=== PATIENT | male | born 1950 | race Caucasian/White ===

== ENCOUNTER 2018-05-15 14:01 | Inpatient (IN) | payer MEDICARE, MEDICAID ==
[~2018-05-15] VITALS: Ht 167.6 cm; Wt 123.6 kg
[2018-05-15 14:49] LABS: BASOPHILS # (AUTO) 0.1 X10'3 (0-0.2); BASOPHILS % (AUTO) 0.8 % (0-1); EOSINOPHILS % (AUTO) 0.4 % (0-6); HEMOGLOBIN 14.6 g/dl (14.0-17.9); LYMPHOCYTES # (AUTO) 1.6 X10'3 (1.1-4.8); LYMPHOCYTES % (AUTO) 14.3 % (21-51); MEAN CORPUSCULAR HEMOGLOBIN 32.1 PG (27.0-31.0); MEAN CORPUSCULAR HGB CONC 33.2 % (33.0-36.5); MEAN CORPUSCULAR VOLUME 96.6 FL (78-98); MEAN PLATELET VOLUME 6.3 FL (7.4-10.4); MONOCYTES # (AUTO) 0.8 X10'3 (0-0.9); MONOCYTES % (AUTO) 7.1 % (2-12); NEUTROPHILS # (AUTO) 8.5 X10'3 (1.8-7.7); NEUTROPHILS % (AUTO) 77.4 % (42-75); PLATELET COUNT 199 X10'3 (140-440); RED BLOOD COUNT 4.56 X10'6 (4.70-6.10); RED CELL DISTRIBUTION WIDTH 18.9 % (11.5-14.5)
[2018-05-15 15:00] LABS: ALANINE AMINOTRANSFERASE 14 U/L (12-78); ALBUMIN 2.6 G/DL (3.4-5.0); ALBUMIN/GLOBULIN RATIO 0.7 (1.1-1.5); ALKALINE PHOSPHATASE 89 IU/L (46-116); ANION GAP 15 (8-16); ASPARTATE AMINO TRANSFERASE 21 U/L (10-37); BILIRUBIN,TOTAL 0.8 MG/DL (0.1-1.0); BLOOD UREA NITROGEN 48 MG/DL (7-18); BUN/CREATININE RATIO 4.1 (5.4-32.0); CALCIUM 9.4 MG/DL (8.5-10.1); CHLORIDE 98 MMOL/L (99-107); CREATININE 11.66 MG/DL (0.60-1.10); GLUCOSE 137 MG/DL (70-104); MAGNESIUM 2.1 MG/DL (1.5-2.4); POTASSIUM 3.2 MMOL/L (3.5-5.1); SODIUM 138 MMOL/L (135-145); TOTAL CARBON DIOXIDE 25.1 MMOL/L (24-32); TOTAL PROTEIN 6.6 G/DL (6.4-8.2); eGFR 4 ML/MIN
[2018-05-15 15:02] LABS: PROTHROMBIN TIME 78.2 SECONDS (9.0-12.0)
[2018-05-15 15:07] LABS: INR 8.7 INR
[2018-05-15 15:19] LABS: ANISOCYTOSIS 2+; PLATELET ESTIMATE NORMAL; POLYCHROMASIA FEW
[2018-05-15] MEDS ORDERED: HYDROcodone/acetaminophen 5mg/325mg tablet PO PRN (17:30)
[2018-05-15] MEDS ORDERED: magnesium 4gm in 100ml NS 100 ML IV PRN (17:30)
[2018-05-15] MEDS ORDERED: magnesium Cl slow-release 64mg tablet PO PRN (17:30)
[2018-05-15] MEDS ORDERED: morphine 2 MG/ML inj. syringe IV PRN ×2 (17:30)
[2018-05-15] MEDS ORDERED: FERR210T (17:36)
[2018-05-15] MEDS ORDERED: CALC667T5 PO (17:36)
[2018-05-15] MEDS ORDERED: BISA-78 (18:01)
[2018-05-15] MEDS ORDERED: LOVA10TA PO (18:01)
[2018-05-15] MEDS ORDERED: VIT1TABL50 PO (18:01)
[2018-05-15] MEDS ORDERED: GABA-530 PO (18:01)
[2018-05-15] MEDS ORDERED: RANI150C4 PO (18:01)
[2018-05-15] MEDS ORDERED: COU5T PO (18:01)
[2018-05-15] MEDS ORDERED: CALC0.5C2 PO (18:01)
[2018-05-15] MEDS ORDERED: MIDO5TAB PO (18:01)
[2018-05-15] MEDS ORDERED: LACT10SO PO (18:01)
[2018-05-15] MEDS ORDERED: AMIO200T40 PO (18:01)
[2018-05-15] MEDS ORDERED: SERT50TA10 PO (18:01)
[2018-05-15] MEDS: normal saline 1000ml 1,000 ML IV SCH (18:05)
[2018-05-15 20:00] VITALS: BP 90/56
[2018-05-15] MEDS: HYDROcodone/acetaminophen 10/325mg tab PO PRN (21:50)
[2018-05-15 23:00] VITALS: BP 88/20
[2018-05-16] MEDS: HYDROcodone/acetaminophen 10/325mg tab PO PRN ×3 (02:40→13:31)
[2018-05-16 03:00] VITALS: BP 91/58
[2018-05-16 06:00] VITALS: BP 98/57
[2018-05-16 07:28] LABS: BASOPHILS # (AUTO) 0.1 X10'3 (0-0.2); BASOPHILS % (AUTO) 1.3 % (0-1); EOSINOPHILS # (AUTO) 0.2 X10'3 (0-0.9); EOSINOPHILS % (AUTO) 1.7 % (0-6); HEMATOCRIT 42.6 % (42.0-52.0); LYMPHOCYTES # (AUTO) 1.8 X10'3 (1.1-4.8); LYMPHOCYTES % (AUTO) 17.8 % (21-51); MEAN CORPUSCULAR HEMOGLOBIN 31.9 PG (27.0-31.0); MEAN CORPUSCULAR HGB CONC 32.9 % (33.0-36.5); MEAN CORPUSCULAR VOLUME 97.1 FL (78-98); MEAN PLATELET VOLUME 6.4 FL (7.4-10.4); MONOCYTES # (AUTO) 0.6 X10'3 (0-0.9); MONOCYTES % (AUTO) 5.9 % (2-12); NEUTROPHILS # (AUTO) 7.4 X10'3 (1.8-7.7); NEUTROPHILS % (AUTO) 73.3 % (42-75); PLATELET COUNT 172 X10'3 (140-440); RED BLOOD COUNT 4.39 X10'6 (4.70-6.10); RED CELL DISTRIBUTION WIDTH 18.6 % (11.5-14.5); WHITE BLOOD COUNT 10.2 X10'3 (4.5-11.0)
[2018-05-16] MEDS: calcium acetate 667mg (PhosLO) capsule PO SCH ×3 (07:36→20:45)
[2018-05-16] MEDS: midodrine 5mg tablet PO SCH ×3 (07:36→23:06)
[2018-05-16] MEDS: gabapentin 100mg capsule PO SCH ×3 (07:37→23:07)
[2018-05-16] MEDS: famotidine 20mg tablet PO SCH ×2 (07:37→20:45)
[2018-05-16] MEDS: amiodarone 200mg tablet PO SCH (07:37)
[2018-05-16] MEDS: sertraline 50mg tablet PO SCH (07:37)
[2018-05-16] MEDS: atorvastatin 10mg tablet PO SCH (07:38)
[2018-05-16] MEDS: lactulose 20gm/30ml cup PO SCH (07:39)
[2018-05-16 09:12] LABS: ALBUMIN 2.3 G/DL (3.4-5.0); ANION GAP 15 (8-16); BLOOD UREA NITROGEN 57 MG/DL (7-18); BUN/CREATININE RATIO 4.7 (5.4-32.0); CHLORIDE 100 MMOL/L (99-107); CREATININE 12.16 MG/DL (0.60-1.10); GLUCOSE 106 MG/DL (70-104); MAGNESIUM 2.1 MG/DL (1.5-2.4); POTASSIUM 3.4 MMOL/L (3.5-5.1); SODIUM 139 MMOL/L (135-145); TOTAL CARBON DIOXIDE 24.3 MMOL/L (24-32); eGFR 4 ML/MIN
[2018-05-16 10:21] LABS: PROTHROMBIN TIME 75.7 SECONDS (9.0-12.0)
[2018-05-16 10:24] LABS: ALANINE AMINOTRANSFERASE 13 U/L (12-78); ALBUMIN 2.2 G/DL (3.4-5.0); ALBUMIN/GLOBULIN RATIO 0.6 (1.1-1.5); ALKALINE PHOSPHATASE 82 IU/L (46-116); ASPARTATE AMINO TRANSFERASE 15 U/L (10-37); BILIRUBIN,DIRECT 0.2 MG/DL (0-0.3); BILIRUBIN,TOTAL 0.6 MG/DL (0.1-1.0); INR 8.4 INR
[2018-05-16 11:00] VITALS: BP 91/60
[2018-05-16 15:00] VITALS: BP 144/124
[2018-05-16 19:00] VITALS: BP 92/58
[2018-05-16] MEDS: normal saline 1000ml 1,000 ML IV SCH (19:03)
[2018-05-16] MEDS ORDERED: warfarin 5mg tablet PO SCH (21:00)
[2018-05-16 23:00] VITALS: BP 128/80
[2018-05-17] MEDS: HYDROcodone/acetaminophen 10/325mg tab PO PRN ×3 (02:05→19:28)
[2018-05-17 03:00] VITALS: BP 95/61
[2018-05-17 06:00] VITALS: BP 87/54
[2018-05-17 06:54] LABS: BASOPHILS # (AUTO) 0.1 X10'3 (0-0.2); BASOPHILS % (AUTO) 0.8 % (0-1); EOSINOPHILS # (AUTO) 0.2 X10'3 (0-0.9); EOSINOPHILS % (AUTO) 2.6 % (0-6); HEMATOCRIT 44.3 % (42.0-52.0); HEMOGLOBIN 14.7 g/dl (14.0-17.9); LYMPHOCYTES # (AUTO) 1.6 X10'3 (1.1-4.8); LYMPHOCYTES % (AUTO) 19.5 % (21-51); MEAN CORPUSCULAR HEMOGLOBIN 32.5 PG (27.0-31.0); MEAN CORPUSCULAR HGB CONC 33.2 % (33.0-36.5); MEAN CORPUSCULAR VOLUME 97.9 FL (78-98); MEAN PLATELET VOLUME 6.3 FL (7.4-10.4); MONOCYTES # (AUTO) 0.4 X10'3 (0-0.9); MONOCYTES % (AUTO) 5.5 % (2-12); NEUTROPHILS # (AUTO) 5.8 X10'3 (1.8-7.7); NEUTROPHILS % (AUTO) 71.6 % (42-75); PLATELET COUNT 158 X10'3 (140-440); RED BLOOD COUNT 4.52 X10'6 (4.70-6.10); RED CELL DISTRIBUTION WIDTH 19.3 % (11.5-14.5); WHITE BLOOD COUNT 8.1 X10'3 (4.5-11.0)
[2018-05-17 07:07] LABS: ALBUMIN 2.2 G/DL (3.4-5.0); ANION GAP 11 (8-16); BLOOD UREA NITROGEN 54 MG/DL (7-18); BUN/CREATININE RATIO 4.5 (5.4-32.0); CALCIUM 9.5 MG/DL (8.5-10.1); CHLORIDE 101 MMOL/L (99-107); CREATININE 11.97 MG/DL (0.60-1.10); GLUCOSE 94 MG/DL (70-104); MAGNESIUM 2.2 MG/DL (1.5-2.4); POTASSIUM 3.4 MMOL/L (3.5-5.1); PROTHROMBIN TIME 57.5 SECONDS (9.0-12.0); SODIUM 139 MMOL/L (135-145); TOTAL CARBON DIOXIDE 26.8 MMOL/L (24-32); eGFR 4 ML/MIN
[2018-05-17 07:09] LABS: INR 6.3 INR
[2018-05-17] MEDS: midodrine 5mg tablet PO SCH ×2 (07:27→16:19)
[2018-05-17] MEDS: atorvastatin 10mg tablet PO SCH (07:27)
[2018-05-17] MEDS: sertraline 50mg tablet PO SCH (07:27)
[2018-05-17] MEDS: gabapentin 100mg capsule PO SCH ×2 (07:27→16:18)
[2018-05-17] MEDS: amiodarone 200mg tablet PO SCH (07:27)
[2018-05-17] MEDS: famotidine 20mg tablet PO SCH ×2 (07:27→19:27)
[2018-05-17] MEDS: lactulose 20gm/30ml cup PO SCH (07:27)
[2018-05-17] MEDS: calcium acetate 667mg (PhosLO) capsule PO SCH ×3 (07:30→17:46)
[2018-05-17 11:00] VITALS: BP 90/55
[2018-05-17] MEDS: normal saline 1000ml 1,000 ML IV SCH (11:49)
[2018-05-17 15:00] VITALS: BP 94/58
[2018-05-17 19:00] VITALS: BP 78/40
[2018-05-17 23:00] VITALS: BP 110/60
[2018-05-18] MEDS: gabapentin 100mg capsule PO SCH ×4 (00:20→23:54)
[2018-05-18] MEDS: midodrine 5mg tablet PO SCH ×4 (00:20→23:54)
[2018-05-18 03:00] VITALS: BP 103/50
[2018-05-18 06:00] VITALS: BP 132/77
[2018-05-18 06:34] LABS: BASOPHILS % (AUTO) 0.4 % (0-1); EOSINOPHILS # (AUTO) 0.3 X10'3 (0-0.9); EOSINOPHILS % (AUTO) 3.4 % (0-6); HEMATOCRIT 43.1 % (42.0-52.0); HEMOGLOBIN 14.2 g/dl (14.0-17.9); LYMPHOCYTES # (AUTO) 2.1 X10'3 (1.1-4.8); LYMPHOCYTES % (AUTO) 27.6 % (21-51); MEAN CORPUSCULAR HEMOGLOBIN 32.4 PG (27.0-31.0); MEAN CORPUSCULAR VOLUME 98.3 FL (78-98); MEAN PLATELET VOLUME 6.2 FL (7.4-10.4); MONOCYTES # (AUTO) 0.6 X10'3 (0-0.9); NEUTROPHILS # (AUTO) 4.6 X10'3 (1.8-7.7); NEUTROPHILS % (AUTO) 60.6 % (42-75); PLATELET COUNT 138 X10'3 (140-440); RED BLOOD COUNT 4.39 X10'6 (4.70-6.10); RED CELL DISTRIBUTION WIDTH 19.3 % (11.5-14.5); WHITE BLOOD COUNT 7.6 X10'3 (4.5-11.0)
[2018-05-18 06:54] LABS: INR 3.8 INR; PROTHROMBIN TIME 35.5 SECONDS (9.0-12.0)
[2018-05-18 07:14] LABS: ANION GAP 15 (8-16); BLOOD UREA NITROGEN 53 MG/DL (7-18); BUN/CREATININE RATIO 4.6 (5.4-32.0); CALCIUM 9.5 MG/DL (8.5-10.1); CHLORIDE 102 MMOL/L (99-107); CREATININE 11.43 MG/DL (0.60-1.10); GLUCOSE 121 MG/DL (70-104); MAGNESIUM 2.2 MG/DL (1.5-2.4); POTASSIUM 3.2 MMOL/L (3.5-5.1); SODIUM 138 MMOL/L (135-145); TOTAL CARBON DIOXIDE 20.6 MMOL/L (24-32); eGFR 4 ML/MIN
[2018-05-18] MEDS: lactulose 20gm/30ml cup PO SCH (07:54)
[2018-05-18] MEDS: calcium acetate 667mg (PhosLO) capsule PO SCH ×3 (07:54→19:47)
[2018-05-18] MEDS: famotidine 20mg tablet PO SCH ×2 (07:54→19:47)
[2018-05-18] MEDS: atorvastatin 10mg tablet PO SCH (07:54)
[2018-05-18] MEDS: sertraline 50mg tablet PO SCH (07:54)
[2018-05-18] MEDS: amiodarone 200mg tablet PO SCH (07:54)
[2018-05-18] MEDS: HYDROcodone/acetaminophen 10/325mg tab PO PRN ×3 (07:55→16:33)
[2018-05-18 11:00] VITALS: BP 83/48
[2018-05-18] MEDS ORDERED: CALC0.5C2 PO (15:34)
[2018-05-18] MEDS ORDERED: CINA30TA PO (15:34)
[2018-05-18 18:00] VITALS: BP 91/56
[2018-05-18 19:15] LABS: ABG BASE EXCESS -4.4 mmol/L (-2.0-3.0); ABG HCO3 22.3 mmol/L (22.0-26.0); ABG OXYGEN SATURATION 94.9 % (95-98); ABG PCO2 (T) 45.8 mmHg (35.0-48.0); ABG PH (T) 7.303 (7.350-7.450); ALLEN'S TEST Positive; FCOHb 0.7 % (0.5-1.5); FLOW 5 L/min; FMetHb 0.2 % (0.3-1.12); PATIENT TEMPERATURE 36.3; TOTAL HEMOGLOBIN 13.8 G/dl (14.0-18.0)
[2018-05-18] MEDS ORDERED: albumin (human) 25% 100ml IV 100 ML IV ONE (19:50)
[2018-05-18 22:00] VITALS: BP 105/50
[2018-05-18 22:09] LABS: PHOSPHORUS 5.9 MG/DL (2.3-4.5); TROPONIN I < 0.04 NG/ML (0.0-0.05)
[2018-05-19] VITALS (26 sets, daily range): BP systolic 69–144; BP diastolic 33–106
[2018-05-19 06:43] LABS: BASOPHILS % (AUTO) 0.1 % (0-1); EOSINOPHILS # (AUTO) 0.2 X10'3 (0-0.9); EOSINOPHILS % (AUTO) 2.2 % (0-6); HEMATOCRIT 40.4 % (42.0-52.0); HEMOGLOBIN 13.3 g/dl (14.0-17.9); LYMPHOCYTES # (AUTO) 0.8 X10'3 (1.1-4.8); LYMPHOCYTES % (AUTO) 10.9 % (21-51); MEAN CORPUSCULAR HEMOGLOBIN 32.1 PG (27.0-31.0); MEAN CORPUSCULAR VOLUME 97.3 FL (78-98); MEAN PLATELET VOLUME 6.3 FL (7.4-10.4); MONOCYTES # (AUTO) 0.3 X10'3 (0-0.9); MONOCYTES % (AUTO) 4.2 % (2-12); NEUTROPHILS % (AUTO) 82.6 % (42-75); PLATELET COUNT 169 X10'3 (140-440); RED BLOOD COUNT 4.15 X10'6 (4.70-6.10); RED CELL DISTRIBUTION WIDTH 18.9 % (11.5-14.5); WHITE BLOOD COUNT 7.3 X10'3 (4.5-11.0)
[2018-05-19 06:46] LABS: ALBUMIN 2.3 G/DL (3.4-5.0); ANION GAP 14 (8-16); BLOOD UREA NITROGEN 52 MG/DL (7-18); BUN/CREATININE RATIO 4.8 (5.4-32.0); CALCIUM 9.3 MG/DL (8.5-10.1); CHLORIDE 98 MMOL/L (99-107); CREATININE 10.84 MG/DL (0.60-1.10); GLUCOSE 131 MG/DL (70-104); MAGNESIUM 1.9 MG/DL (1.5-2.4); POTASSIUM 3.3 MMOL/L (3.5-5.1); SODIUM 136 MMOL/L (135-145); TOTAL CARBON DIOXIDE 24.5 MMOL/L (24-32); eGFR 5 ML/MIN
[2018-05-19 07:24] LABS: INR 3.3 INR; PROTHROMBIN TIME 31.3 SECONDS (9.0-12.0)
[2018-05-19] MEDS ORDERED: levoFLOXACIN-Levaquin 250mg/D5 50 ML IV ONE (07:25)
[2018-05-19 07:50] LABS: ABG BASE EXCESS -3.8 mmol/L (-2.0-3.0); ABG HCO3 20.7 mmol/L (22.0-26.0); ABG OXYGEN SATURATION 98.4 % (95-98); ABG PCO2 (T) 36.2 mmHg (35.0-48.0); ABG PH (T) 7.376 (7.350-7.450); ABG PO2 (T) 125.4 mmHg (83-108); ALLEN'S TEST Positive; FCOHb 0.5 % (0.5-1.5); FMetHb 0.2 % (0.3-1.12); FO2Hb 97.7 % (94-100); PEEP 5 cm H2O; RESPIRATORY RATE (OBSERVED) 16 b/min; TOTAL HEMOGLOBIN 13.2 G/dl (14.0-18.0)
[2018-05-19] MEDS: sertraline 50mg tablet PO SCH (08:00)
[2018-05-19] MEDS: atorvastatin 10mg tablet PO SCH (08:00)
[2018-05-19] MEDS: calcium acetate 667mg (PhosLO) capsule PO SCH ×3 (08:00→18:00)
[2018-05-19] MEDS: amiodarone 200mg tablet PO SCH ×2 (08:00→12:09)
[2018-05-19] MEDS: midodrine 5mg tablet PO SCH ×3 (08:00→17:14)
[2018-05-19] MEDS: lactulose 20gm/30ml cup PO SCH (08:00)
[2018-05-19] MEDS: gabapentin 100mg capsule PO SCH ×2 (08:00→17:16)
[2018-05-19] MEDS ORDERED: normal saline 250ml IV soln 250 ML IV ONE (08:30)
[2018-05-19] MEDS ORDERED: OLANZapine 5mg rapidly disint. tablet PO ONE (11:40)
[2018-05-19] MEDS ORDERED: NORepinephrine 8mg/ 250ml NS 250 ML IV ONE (16:27)
[2018-05-19] MEDS ORDERED: DOPamine 400mg/D5W 250ml 250 ML IV SCH (16:35)
[2018-05-19] MEDS: DOPamine 400mg/D5W 250ml 250 ML IV SCH (17:43)
[2018-05-19] MEDS ORDERED: OLANZapine **IM** 10 mg inj. IM ONE (20:10)
[2018-05-20] VITALS (22 sets, daily range): BP systolic 72–160; BP diastolic 34–104
[2018-05-20] MEDS: DOPamine 400mg/D5W 250ml 250 ML IV SCH ×4 (04:53→23:39)
[2018-05-20] MEDS ORDERED: albumin (Human) 5% 250ml 250 ML IV ONE ×2 (06:40→06:41)
[2018-05-20 06:46] LABS: ABG BASE EXCESS -0.5 mmol/L (-2.0-3.0); ABG HCO3 25.6 mmol/L (22.0-26.0); ABG OXYGEN SATURATION 92.2 % (95-98); ABG PCO2 (T) 47.3 mmHg (35.0-48.0); ABG PH (T) 7.351 (7.350-7.450); ABG PO2 (T) 65.8 mmHg (83-108); FLOW 5 L/min; FMetHb 0.2 % (0.3-1.12); FO2Hb 91.1 % (94-100); TOTAL HEMOGLOBIN 14.7 G/dl (14.0-18.0)
[2018-05-20 06:53] LABS: INR 3.4 INR; PROTHROMBIN TIME 32.6 SECONDS (9.0-12.0)
[2018-05-20 06:54] LABS: BASOPHILS % (AUTO) 0.4 % (0-1); EOSINOPHILS # (AUTO) 0.2 X10'3 (0-0.9); EOSINOPHILS % (AUTO) 2.7 % (0-6); HEMATOCRIT 40.9 % (42.0-52.0); HEMOGLOBIN 13.5 g/dl (14.0-17.9); LYMPHOCYTES # (AUTO) 1.5 X10'3 (1.1-4.8); LYMPHOCYTES % (AUTO) 17.4 % (21-51); MEAN CORPUSCULAR HEMOGLOBIN 31.8 PG (27.0-31.0); MEAN CORPUSCULAR HGB CONC 32.9 % (33.0-36.5); MEAN CORPUSCULAR VOLUME 96.8 FL (78-98); MEAN PLATELET VOLUME 6.1 FL (7.4-10.4); MONOCYTES # (AUTO) 0.5 X10'3 (0-0.9); MONOCYTES % (AUTO) 5.2 % (2-12); NEUTROPHILS # (AUTO) 6.5 X10'3 (1.8-7.7); NEUTROPHILS % (AUTO) 74.3 % (42-75); PLATELET COUNT 176 X10'3 (140-440); RED BLOOD COUNT 4.23 X10'6 (4.70-6.10); RED CELL DISTRIBUTION WIDTH 18.9 % (11.5-14.5); WHITE BLOOD COUNT 8.7 X10'3 (4.5-11.0)
[2018-05-20 06:59] LABS: ANION GAP 14 (8-16); BLOOD UREA NITROGEN 53 MG/DL (7-18); CALCIUM 9.3 MG/DL (8.5-10.1); CHLORIDE 100 MMOL/L (99-107); CREATININE 10.54 MG/DL (0.60-1.10); GLUCOSE 182 MG/DL (70-104); SODIUM 139 MMOL/L (135-145); TOTAL CARBON DIOXIDE 24.9 MMOL/L (24-32); eGFR 5 ML/MIN
[2018-05-20 07:20] LABS: POTASSIUM 2.9 MMOL/L (3.5-5.1)
[2018-05-20] MEDS: sertraline 50mg tablet PO SCH (08:00)
[2018-05-20] MEDS: gabapentin 100mg capsule PO SCH ×3 (08:00→16:00)
[2018-05-20] MEDS ORDERED: potassium Cl oral solution 20 MEQ/15 ML PO ONE (08:40)
[2018-05-20] MEDS: calcium acetate 667mg (PhosLO) capsule PO SCH ×3 (08:54→23:20)
[2018-05-20] MEDS: lactulose 20gm/30ml cup PO SCH (08:54)
[2018-05-20] MEDS: atorvastatin 10mg tablet PO SCH (08:54)
[2018-05-20] MEDS: amiodarone 200mg tablet PO SCH (08:54)
[2018-05-20] MEDS: midodrine 5mg tablet PO SCH ×3 (09:33→16:00)
[2018-05-20] MEDS ORDERED: DOPamine 400mg/D5W 250ml 250 ML IV SCH (16:35)
[2018-05-21] VITALS (25 sets, daily range): BP systolic 44–141; BP diastolic 35–92
[2018-05-21] MEDS ORDERED: dextrose ORAL solution 15 GM/59 ML bottle PO PRN ×2 (02:35)
[2018-05-21] MEDS ORDERED: MESSAGE TO PHARMACY PO ONE (02:35)
[2018-05-21] MEDS ORDERED: glucagon, human recombinant 1mg kit SUBCUT PRN (02:35)
[2018-05-21] MEDS ORDERED: dextrose 50%-water 50ml dispensing syringe IV PRN ×2 (02:35)
[2018-05-21 03:49] LABS: INR 3.5 INR; PROTHROMBIN TIME 33.5 SECONDS (9.0-12.0)
[2018-05-21 03:56] LABS: ALBUMIN 2.1 G/DL (3.4-5.0); ANION GAP 14 (8-16); BLOOD UREA NITROGEN 53 MG/DL (7-18); BUN/CREATININE RATIO 5.2 (5.4-32.0); CALCIUM 9.5 MG/DL (8.5-10.1); CHLORIDE 97 MMOL/L (99-107); CREATININE 10.15 MG/DL (0.60-1.10); GLUCOSE 219 MG/DL (70-104); MAGNESIUM 1.9 MG/DL (1.5-2.4); POTASSIUM 3.1 MMOL/L (3.5-5.1); SODIUM 135 MMOL/L (135-145); TOTAL CARBON DIOXIDE 24.4 MMOL/L (24-32); eGFR 5 ML/MIN
[2018-05-21 04:12] LABS: BASOPHILS % (AUTO) 0.2 % (0-1); EOSINOPHILS # (AUTO) 0.2 X10'3 (0-0.9); EOSINOPHILS % (AUTO) 2.2 % (0-6); HEMATOCRIT 45.6 % (42.0-52.0); HEMOGLOBIN 14.8 g/dl (14.0-17.9); LYMPHOCYTES # (AUTO) 1.4 X10'3 (1.1-4.8); LYMPHOCYTES % (AUTO) 14.4 % (21-51); MEAN CORPUSCULAR HEMOGLOBIN 31.5 PG (27.0-31.0); MEAN CORPUSCULAR HGB CONC 32.4 % (33.0-36.5); MEAN CORPUSCULAR VOLUME 97.2 FL (78-98); MEAN PLATELET VOLUME 6.1 FL (7.4-10.4); MONOCYTES # (AUTO) 0.5 X10'3 (0-0.9); MONOCYTES % (AUTO) 5.3 % (2-12); NEUTROPHILS # (AUTO) 7.5 X10'3 (1.8-7.7); NEUTROPHILS % (AUTO) 77.9 % (42-75); PLATELET COUNT 179 X10'3 (140-440); RED BLOOD COUNT 4.69 X10'6 (4.70-6.10); RED CELL DISTRIBUTION WIDTH 19.2 % (11.5-14.5); WHITE BLOOD COUNT 9.6 X10'3 (4.5-11.0)
[2018-05-21] MEDS: DOPamine 400mg/D5W 250ml 250 ML IV SCH ×3 (04:28→20:27)
[2018-05-21] MEDS: insulin Lispro (HumaLOG) vial - multi-dose SQ SCH ×4 (04:32→22:21)
[2018-05-21] MEDS: midodrine 5mg tablet PO SCH ×4 (08:21→23:55)
[2018-05-21] MEDS: atorvastatin 10mg tablet PO SCH (08:21)
[2018-05-21] MEDS: calcium acetate 667mg (PhosLO) capsule PO SCH ×4 (08:21→18:25)
[2018-05-21] MEDS: gabapentin 100mg capsule PO SCH ×4 (08:21→23:55)
[2018-05-21] MEDS: sertraline 50mg tablet PO SCH (08:21)
[2018-05-21] MEDS: amiodarone 200mg tablet PO SCH (08:21)
[2018-05-21] MEDS: lactulose 20gm/30ml cup PO SCH (08:30)
[2018-05-21] MEDS ORDERED: potassium Cl 20 mEq SR tablet PO STA (10:30)
[2018-05-21] MEDS: insulin glargine (Lantus) pen - multi-dose SQ SCH (22:22)
[2018-05-22] VITALS (24 sets, daily range): BP systolic 78–129; BP diastolic 41–112
[2018-05-22] MEDS: gabapentin 100mg capsule PO SCH ×3 (00:06→23:40)
[2018-05-22] MEDS: midodrine 5mg tablet PO SCH ×3 (00:07→23:41)
[2018-05-22] MEDS: DOPamine 400mg/D5W 250ml 250 ML IV SCH ×4 (02:08→23:39)
[2018-05-22 04:18] LABS: MAGNESIUM 1.8 MG/DL (1.5-2.4)
[2018-05-22 04:23] LABS: INR 3.3 INR
[2018-05-22 04:26] LABS: HEMATOCRIT 41.5 % (42.0-52.0); HEMOGLOBIN 14.1 g/dl (14.0-17.9); MEAN CORPUSCULAR HEMOGLOBIN 32.8 PG (27.0-31.0); MEAN CORPUSCULAR HGB CONC 33.9 % (33.0-36.5); MEAN CORPUSCULAR VOLUME 96.5 FL (78-98); PLATELET COUNT 166 X10'3 (140-440); RED CELL DISTRIBUTION WIDTH 17.8 % (11.5-14.5); WHITE BLOOD COUNT 7.7 X10'3 (4.5-11.0)
[2018-05-22 04:27] LABS: BASOPHILS % (AUTO) 0.4 % (0-1); EOSINOPHILS # (AUTO) 0.2 X10'3 (0-0.9); EOSINOPHILS % (AUTO) 2.6 % (0-6); LYMPHOCYTES # (AUTO) 1.3 X10'3 (1.1-4.8); LYMPHOCYTES % (AUTO) 16.3 % (21-51); MEAN PLATELET VOLUME 6.8 FL (7.4-10.4); MONOCYTES # (AUTO) 0.6 X10'3 (0-0.9); MONOCYTES % (AUTO) 7.6 % (2-12); NEUTROPHILS # (AUTO) 5.6 X10'3 (1.8-7.7); NEUTROPHILS % (AUTO) 73.1 % (42-75)
[2018-05-22 06:57] LABS: ALBUMIN 1.9 G/DL (3.4-5.0); ANION GAP 16 (8-16); BLOOD UREA NITROGEN 58 MG/DL (7-18); CALCIUM 9.6 MG/DL (8.5-10.1); CHLORIDE 93 MMOL/L (99-107); CREATININE 9.74 MG/DL (0.60-1.10); GLUCOSE 179 MG/DL (70-104); POTASSIUM 3.4 MMOL/L (3.5-5.1); SODIUM 132 MMOL/L (135-145); TOTAL CARBON DIOXIDE 23.4 MMOL/L (24-32); eGFR 5 ML/MIN
[2018-05-22] MEDS: lactulose 20gm/30ml cup PO SCH (08:37)
[2018-05-22] MEDS: amiodarone 200mg tablet PO SCH (08:37)
[2018-05-22] MEDS: sertraline 50mg tablet PO SCH (08:38)
[2018-05-22] MEDS: atorvastatin 10mg tablet PO SCH (08:38)
[2018-05-22] MEDS: calcium acetate 667mg (PhosLO) capsule PO SCH ×3 (08:38→18:55)
[2018-05-22] MEDS ORDERED: gabapentin 100mg capsule PO ONE (08:50)
[2018-05-22] MEDS ORDERED: midodrine 5mg tablet PO ONE (08:50)
[2018-05-22] MEDS: insulin Lispro (HumaLOG) vial - multi-dose SQ SCH ×2 (08:58→14:16)
[2018-05-22 11:01] LABS: PHOSPHORUS 4.3 MG/DL (2.3-4.5)
[2018-05-22 12:19] LABS: LYMPHOCYTES,BODY FLUID 27 %; MONOCYTES,BODY FLUID 55 %; NEUTROPHILS,BODY FLUID 18 %
[2018-05-22 12:21] LABS: BF MESOTHELIAL CELLS FEW; BF RBC COUNT 0 /CU MM; BF WBC COUNT 8 /CU MM (0-1000); BFAPPEAR HAZY; BFCOLOR COLORLESS; BFVOLUME 18 ML
[2018-05-22] MEDS: ondansetron/PF 4mg/2ml inj IV PRN (15:46)
[2018-05-22 16:40] LABS: OXYGEN SATURATION (MIXED VEN) 77.5 % (60-80); PO2 MIXED VENOUS (TEMP COR) 41.6 mmHg (35-46)
[2018-05-22] MEDS: insulin glargine (Lantus) pen - multi-dose SQ SCH (21:30)
[2018-05-23] VITALS (21 sets, daily range): BP systolic 74–140; BP diastolic 35–93
[2018-05-23 04:16] LABS: BASOPHILS % (AUTO) 0.4 % (0-1); EOSINOPHILS # (AUTO) 0.3 X10'3 (0-0.9); HEMOGLOBIN 12.8 g/dl (14.0-17.9); LYMPHOCYTES # (AUTO) 1.5 X10'3 (1.1-4.8); LYMPHOCYTES % (AUTO) 19.7 % (21-51); MEAN CORPUSCULAR HEMOGLOBIN 32.3 PG (27.0-31.0); MEAN CORPUSCULAR HGB CONC 33.7 % (33.0-36.5); MEAN PLATELET VOLUME 6.2 FL (7.4-10.4); MONOCYTES # (AUTO) 0.5 X10'3 (0-0.9); NEUTROPHILS # (AUTO) 5.1 X10'3 (1.8-7.7); NEUTROPHILS % (AUTO) 68.9 % (42-75); PLATELET COUNT 175 X10'3 (140-440); RED BLOOD COUNT 3.96 X10'6 (4.70-6.10); WHITE BLOOD COUNT 7.5 X10'3 (4.5-11.0)
[2018-05-23 04:18] LABS: INR 2.1 INR; PROTHROMBIN TIME 20.8 SECONDS (9.0-12.0)
[2018-05-23 04:19] LABS: ALANINE AMINOTRANSFERASE 16 U/L (12-78); ALBUMIN 1.7 G/DL (3.4-5.0); ALBUMIN/GLOBULIN RATIO 0.4 (1.1-1.5); ALKALINE PHOSPHATASE 145 IU/L (46-116); ANION GAP 12 (8-16); ASPARTATE AMINO TRANSFERASE 22 U/L (10-37); BILIRUBIN,TOTAL 0.5 MG/DL (0.1-1.0); BLOOD UREA NITROGEN 58 MG/DL (7-18); CALCIUM 9.3 MG/DL (8.5-10.1); CHLORIDE 93 MMOL/L (99-107); CREATININE 9.59 MG/DL (0.60-1.10); GLUCOSE 170 MG/DL (70-104); POTASSIUM 3.4 MMOL/L (3.5-5.1); SODIUM 130 MMOL/L (135-145); TOTAL CARBON DIOXIDE 24.8 MMOL/L (24-32); TOTAL PROTEIN 5.6 G/DL (6.4-8.2); eGFR 5 ML/MIN
[2018-05-23] MEDS: sertraline 50mg tablet PO SCH (08:02)
[2018-05-23] MEDS: amiodarone 200mg tablet PO SCH (08:03)
[2018-05-23] MEDS: midodrine 5mg tablet PO SCH ×3 (08:03→23:49)
[2018-05-23] MEDS: gabapentin 100mg capsule PO SCH ×3 (08:04→23:49)
[2018-05-23] MEDS: atorvastatin 10mg tablet PO SCH (08:05)
[2018-05-23] MEDS: calcium acetate 667mg (PhosLO) capsule PO SCH ×3 (08:05→18:01)
[2018-05-23] MEDS: lactulose 20gm/30ml cup PO SCH (08:05)
[2018-05-23] MEDS: DOPamine 400mg/D5W 250ml 250 ML IV SCH (19:45)
[2018-05-23] MEDS: insulin glargine (Lantus) pen - multi-dose SQ SCH (21:00)
[2018-05-23] MEDS: warfarin 3mg tablet PO SCH (22:22)
[2018-05-24] VITALS (22 sets, daily range): BP systolic 80–127; BP diastolic 32–104
[2018-05-24] MEDS: acetaminophen 325mg tablet PO PRN ×3 (02:35→22:24)
[2018-05-24 03:54] LABS: BASOPHILS # (AUTO) 0.1 X10'3 (0-0.2); BASOPHILS % (AUTO) 1.2 % (0-1); EOSINOPHILS # (AUTO) 0.3 X10'3 (0-0.9); EOSINOPHILS % (AUTO) 4.2 % (0-6); HEMATOCRIT 35.9 % (42.0-52.0); HEMOGLOBIN 12.4 g/dl (14.0-17.9); LYMPHOCYTES # (AUTO) 1.6 X10'3 (1.1-4.8); LYMPHOCYTES % (AUTO) 21.4 % (21-51); MEAN CORPUSCULAR HEMOGLOBIN 32.8 PG (27.0-31.0); MEAN CORPUSCULAR HGB CONC 34.4 % (33.0-36.5); MEAN CORPUSCULAR VOLUME 95.1 FL (78-98); MONOCYTES # (AUTO) 0.6 X10'3 (0-0.9); MONOCYTES % (AUTO) 7.8 % (2-12); NEUTROPHILS # (AUTO) 4.9 X10'3 (1.8-7.7); NEUTROPHILS % (AUTO) 65.4 % (42-75); PLATELET COUNT 187 X10'3 (140-440); RED BLOOD COUNT 3.77 X10'6 (4.70-6.10); WHITE BLOOD COUNT 7.4 X10'3 (4.5-11.0)
[2018-05-24 04:02] LABS: ALANINE AMINOTRANSFERASE 17 U/L (12-78); ALBUMIN 1.7 G/DL (3.4-5.0); ALBUMIN/GLOBULIN RATIO 0.5 (1.1-1.5); ALKALINE PHOSPHATASE 137 IU/L (46-116); ANION GAP 10 (8-16); ASPARTATE AMINO TRANSFERASE 20 U/L (10-37); BILIRUBIN,TOTAL 0.5 MG/DL (0.1-1.0); BLOOD UREA NITROGEN 63 MG/DL (7-18); BUN/CREATININE RATIO 6.8 (5.4-32.0); CHLORIDE 92 MMOL/L (99-107); CREATININE 9.32 MG/DL (0.60-1.10); GLUCOSE 141 MG/DL (70-104); POTASSIUM 3.6 MMOL/L (3.5-5.1); SODIUM 128 MMOL/L (135-145); TOTAL CARBON DIOXIDE 25.8 MMOL/L (24-32); TOTAL PROTEIN 5.4 G/DL (6.4-8.2); eGFR 6 ML/MIN
[2018-05-24 04:07] LABS: INR 1.9 INR; PROTHROMBIN TIME 18.7 SECONDS (9.0-12.0)
[2018-05-24] MEDS: amiodarone 200mg tablet PO SCH (08:06)
[2018-05-24] MEDS: calcium acetate 667mg (PhosLO) capsule PO SCH ×3 (08:06→18:04)
[2018-05-24] MEDS: atorvastatin 10mg tablet PO SCH (08:07)
[2018-05-24] MEDS: midodrine 5mg tablet PO SCH ×2 (08:07→16:40)
[2018-05-24] MEDS: sertraline 50mg tablet PO SCH (08:07)
[2018-05-24] MEDS: lactulose 20gm/30ml cup PO SCH (08:07)
[2018-05-24] MEDS: gabapentin 100mg capsule PO SCH ×2 (08:07→16:40)
[2018-05-24] MEDS: DOPamine 400mg/D5W 250ml 250 ML IV SCH ×3 (11:31→22:13)
[2018-05-24] MEDS: insulin Lispro (HumaLOG) vial - multi-dose SQ SCH (19:25)
[2018-05-24] MEDS: warfarin 3mg tablet PO SCH (21:33)
[2018-05-24] MEDS: insulin glargine (Lantus) pen - multi-dose SQ SCH (21:39)
[2018-05-25] VITALS (22 sets, daily range): BP systolic 82–142; BP diastolic 35–73
[2018-05-25] MEDS: midodrine 5mg tablet PO SCH ×3 (00:08→15:08)
[2018-05-25] MEDS: gabapentin 100mg capsule PO SCH ×3 (00:08→15:08)
[2018-05-25 02:58] LABS: BASOPHILS # (AUTO) 0.1 X10'3 (0-0.2); BASOPHILS % (AUTO) 0.9 % (0-1); EOSINOPHILS # (AUTO) 0.3 X10'3 (0-0.9); EOSINOPHILS % (AUTO) 4.2 % (0-6); HEMATOCRIT 35.9 % (42.0-52.0); HEMOGLOBIN 12.1 g/dl (14.0-17.9); LYMPHOCYTES # (AUTO) 1.7 X10'3 (1.1-4.8); LYMPHOCYTES % (AUTO) 20.6 % (21-51); MEAN CORPUSCULAR HEMOGLOBIN 32.3 PG (27.0-31.0); MEAN CORPUSCULAR HGB CONC 33.7 % (33.0-36.5); MEAN PLATELET VOLUME 6.3 FL (7.4-10.4); MONOCYTES # (AUTO) 0.5 X10'3 (0-0.9); MONOCYTES % (AUTO) 6.7 % (2-12); NEUTROPHILS # (AUTO) 5.4 X10'3 (1.8-7.7); NEUTROPHILS % (AUTO) 67.6 % (42-75); PLATELET COUNT 213 X10'3 (140-440); RED BLOOD COUNT 3.74 X10'6 (4.70-6.10); RED CELL DISTRIBUTION WIDTH 17.8 % (11.5-14.5)
[2018-05-25 03:03] LABS: ALANINE AMINOTRANSFERASE 26 U/L (12-78); ALBUMIN 1.8 G/DL (3.4-5.0); ALBUMIN/GLOBULIN RATIO 0.5 (1.1-1.5); ALKALINE PHOSPHATASE 183 IU/L (46-116); ANION GAP 14 (8-16); ASPARTATE AMINO TRANSFERASE 36 U/L (10-37); BILIRUBIN,TOTAL 0.4 MG/DL (0.1-1.0); BLOOD UREA NITROGEN 63 MG/DL (7-18); BUN/CREATININE RATIO 6.9 (5.4-32.0); CHLORIDE 90 MMOL/L (99-107); CREATININE 9.19 MG/DL (0.60-1.10); GLUCOSE 127 MG/DL (70-104); INR 1.9 INR; POTASSIUM 3.9 MMOL/L (3.5-5.1); PROTHROMBIN TIME 18.7 SECONDS (9.0-12.0); SODIUM 128 MMOL/L (135-145); TOTAL CARBON DIOXIDE 24.5 MMOL/L (24-32); TOTAL PROTEIN 5.5 G/DL (6.4-8.2); eGFR 6 ML/MIN
[2018-05-25] MEDS: atorvastatin 10mg tablet PO SCH (07:30)
[2018-05-25] MEDS: sertraline 50mg tablet PO SCH (07:30)
[2018-05-25] MEDS: amiodarone 200mg tablet PO SCH (07:30)
[2018-05-25] MEDS: lactulose 20gm/30ml cup PO SCH (07:30)
[2018-05-25] MEDS: calcium acetate 667mg (PhosLO) capsule PO SCH ×3 (07:30→18:04)
[2018-05-25] MEDS: acetaminophen 325mg tablet PO PRN ×2 (08:27→19:33)
[2018-05-25] MEDS: DOPamine 400mg/D5W 250ml 250 ML IV SCH (08:29)
[2018-05-25] MEDS: ondansetron/PF 4mg/2ml inj IV PRN (08:55)
[2018-05-25] MEDS: insulin Lispro (HumaLOG) vial - multi-dose SQ SCH ×2 (09:41→14:41)
[2018-05-25] MEDS ORDERED: sennosides/docusate sodium tablet PO ONE (09:55)
[2018-05-25] MEDS ORDERED: polyethylene glycol 3350 17gm powd pack PO SCH (09:55)
[2018-05-25] MEDS: NORepinephrine 8mg/ 250ml NS 250 ML IV SCH (10:54)
[2018-05-25] MEDS: fludrocortisone acetate 0.1mg tablet PO SCH (11:08)
[2018-05-25] MEDS: warfarin 3mg tablet PO SCH (21:16)
[2018-05-25] MEDS: insulin glargine (Lantus) pen - multi-dose SQ SCH (21:25)
[2018-05-26] VITALS (24 sets, daily range): BP systolic 88–143; BP diastolic 32–82
[2018-05-26] MEDS: midodrine 5mg tablet PO SCH ×3 (00:26→16:08)
[2018-05-26] MEDS: gabapentin 100mg capsule PO SCH ×3 (00:26→16:08)
[2018-05-26] MEDS: NORepinephrine 8mg/ 250ml NS 250 ML IV SCH ×2 (01:18→21:11)
[2018-05-26 03:09] LABS: BASOPHILS # (AUTO) 0.1 X10'3 (0-0.2); EOSINOPHILS # (AUTO) 0.3 X10'3 (0-0.9); EOSINOPHILS % (AUTO) 3.1 % (0-6); HEMATOCRIT 33.7 % (42.0-52.0); HEMOGLOBIN 11.2 g/dl (14.0-17.9); LYMPHOCYTES # (AUTO) 2.4 X10'3 (1.1-4.8); MEAN CORPUSCULAR HGB CONC 33.4 % (33.0-36.5); MEAN CORPUSCULAR VOLUME 95.9 FL (78-98); MEAN PLATELET VOLUME 6.3 FL (7.4-10.4); MONOCYTES # (AUTO) 0.7 X10'3 (0-0.9); MONOCYTES % (AUTO) 7.8 % (2-12); NEUTROPHILS # (AUTO) 5.8 X10'3 (1.8-7.7); NEUTROPHILS % (AUTO) 62.1 % (42-75); PLATELET COUNT 272 X10'3 (140-440); RED BLOOD COUNT 3.51 X10'6 (4.70-6.10); WHITE BLOOD COUNT 9.3 X10'3 (4.5-11.0)
[2018-05-26 03:19] LABS: ALANINE AMINOTRANSFERASE 23 U/L (12-78); ALBUMIN 1.8 G/DL (3.4-5.0); ALBUMIN/GLOBULIN RATIO 0.5 (1.1-1.5); ALKALINE PHOSPHATASE 178 IU/L (46-116); ANION GAP 13 (8-16); ASPARTATE AMINO TRANSFERASE 27 U/L (10-37); BILIRUBIN,TOTAL 0.4 MG/DL (0.1-1.0); BLOOD UREA NITROGEN 61 MG/DL (7-18); BUN/CREATININE RATIO 6.7 (5.4-32.0); CALCIUM 8.7 MG/DL (8.5-10.1); CHLORIDE 90 MMOL/L (99-107); CREATININE 9.05 MG/DL (0.60-1.10); GLUCOSE 104 MG/DL (70-104); MAGNESIUM 1.6 MG/DL (1.5-2.4); PHOSPHORUS 4.9 MG/DL (2.3-4.5); SODIUM 127 MMOL/L (135-145); TOTAL CARBON DIOXIDE 24.1 MMOL/L (24-32); TOTAL PROTEIN 5.4 G/DL (6.4-8.2); eGFR 6 ML/MIN
[2018-05-26 03:20] LABS: INR 2.1 INR; PROTHROMBIN TIME 20.2 SECONDS (9.0-12.0)
[2018-05-26] MEDS: DOPamine 400mg/D5W 250ml 250 ML IV SCH ×2 (07:36→18:50)
[2018-05-26] MEDS: atorvastatin 10mg tablet PO SCH (08:20)
[2018-05-26] MEDS: fludrocortisone acetate 0.1mg tablet PO SCH (08:20)
[2018-05-26] MEDS: amiodarone 200mg tablet PO SCH (08:20)
[2018-05-26] MEDS: calcium acetate 667mg (PhosLO) capsule PO SCH ×3 (08:20→18:43)
[2018-05-26] MEDS: sertraline 50mg tablet PO SCH (08:20)
[2018-05-26] MEDS ORDERED: midodrine 5mg tablet PO ONE (09:05)
[2018-05-26] MEDS: sennosides/docusate sodium tablet PO SCH (09:16)
[2018-05-26] MEDS: acetaminophen 325mg tablet PO PRN ×2 (09:31→16:10)
[2018-05-26] MEDS: insulin glargine (Lantus) pen - multi-dose SQ SCH (21:00)
[2018-05-26] MEDS: warfarin 3mg tablet PO SCH (21:13)
[2018-05-27] VITALS (23 sets, daily range): BP systolic 76–145; BP diastolic 39–74
[2018-05-27] MEDS: gabapentin 100mg capsule PO SCH ×3 (00:43→17:18)
[2018-05-27] MEDS: midodrine 5mg tablet PO SCH ×3 (00:44→17:18)
[2018-05-27 03:03] LABS: BASOPHILS % (AUTO) 0.6 % (0-1); EOSINOPHILS # (AUTO) 0.4 X10'3 (0-0.9); EOSINOPHILS % (AUTO) 5.3 % (0-6); HEMATOCRIT 32.2 % (42.0-52.0); HEMOGLOBIN 10.8 g/dl (14.0-17.9); LYMPHOCYTES % (AUTO) 27.2 % (21-51); MEAN CORPUSCULAR HEMOGLOBIN 32.4 PG (27.0-31.0); MEAN CORPUSCULAR HGB CONC 33.5 % (33.0-36.5); MEAN CORPUSCULAR VOLUME 96.7 FL (78-98); MEAN PLATELET VOLUME 6.3 FL (7.4-10.4); MONOCYTES # (AUTO) 0.5 X10'3 (0-0.9); MONOCYTES % (AUTO) 7.1 % (2-12); NEUTROPHILS # (AUTO) 4.3 X10'3 (1.8-7.7); NEUTROPHILS % (AUTO) 59.8 % (42-75); PLATELET COUNT 279 X10'3 (140-440); RED BLOOD COUNT 3.33 X10'6 (4.70-6.10); RED CELL DISTRIBUTION WIDTH 17.9 % (11.5-14.5); WHITE BLOOD COUNT 7.3 X10'3 (4.5-11.0)
[2018-05-27 03:11] LABS: ALANINE AMINOTRANSFERASE 19 U/L (12-78); ALBUMIN 1.7 G/DL (3.4-5.0); ALBUMIN/GLOBULIN RATIO 0.5 (1.1-1.5); ALKALINE PHOSPHATASE 169 IU/L (46-116); ANION GAP 11 (8-16); ASPARTATE AMINO TRANSFERASE 22 U/L (10-37); BILIRUBIN,TOTAL 0.4 MG/DL (0.1-1.0); BLOOD UREA NITROGEN 61 MG/DL (7-18); BUN/CREATININE RATIO 7.1 (5.4-32.0); CALCIUM 8.5 MG/DL (8.5-10.1); CHLORIDE 91 MMOL/L (99-107); CREATININE 8.61 MG/DL (0.60-1.10); GLUCOSE 115 MG/DL (70-104); MAGNESIUM 1.7 MG/DL (1.5-2.4); PHOSPHORUS 5.1 MG/DL (2.3-4.5); POTASSIUM 4.1 MMOL/L (3.5-5.1); SODIUM 127 MMOL/L (135-145); TOTAL CARBON DIOXIDE 24.7 MMOL/L (24-32); TOTAL PROTEIN 5.2 G/DL (6.4-8.2); eGFR 6 ML/MIN
[2018-05-27 03:35] LABS: INR 2.3 INR; PARTIAL THROMBOPLASTIN TIME 52 SECONDS (22-32); PROTHROMBIN TIME 22.7 SECONDS (9.0-12.0)
[2018-05-27] MEDS: sertraline 50mg tablet PO SCH (08:07)
[2018-05-27] MEDS: polyethylene glycol 3350 17gm powd pack PO SCH (08:07)
[2018-05-27] MEDS: sennosides/docusate sodium tablet PO SCH (08:07)
[2018-05-27] MEDS: fludrocortisone acetate 0.1mg tablet PO SCH (08:07)
[2018-05-27] MEDS: calcium acetate 667mg (PhosLO) capsule PO SCH ×3 (08:08→18:45)
[2018-05-27] MEDS: atorvastatin 10mg tablet PO SCH (08:08)
[2018-05-27] MEDS: amiodarone 200mg tablet PO SCH (08:08)
[2018-05-27] MEDS: DOPamine 400mg/D5W 250ml 250 ML IV SCH ×2 (09:36→22:36)
[2018-05-27] MEDS: acetaminophen 325mg tablet PO PRN ×2 (09:58→17:18)
[2018-05-27] MEDS ORDERED: midodrine 5mg tablet PO ONE (11:20)
[2018-05-27] MEDS ORDERED: lactulose 20gm/30ml cup PO SCH (14:00)
[2018-05-27] MEDS ORDERED: lactulose 20gm/30ml cup PO PRN (14:00)
[2018-05-27] MEDS: NUT.TX.GLUC.INTOLER,LAC-FR,SOY (GLUCERNA) 237 ML PO SCH (18:00)
[2018-05-27] MEDS: insulin glargine (Lantus) pen - multi-dose SQ SCH (21:00)
[2018-05-27] MEDS: warfarin 3mg tablet PO SCH (21:24)
[2018-05-28] VITALS (22 sets, daily range): BP systolic 80–128; BP diastolic 45–70
[2018-05-28] MEDS: midodrine 5mg tablet PO SCH ×3 (00:11→15:10)
[2018-05-28] MEDS: gabapentin 100mg capsule PO SCH ×4 (00:11→23:50)
[2018-05-28] MEDS: HYDROcodone/acetaminophen 5mg/325mg tablet PO PRN ×2 (03:37→20:03)
[2018-05-28 05:49] LABS: BASOPHILS # (AUTO) 0.1 X10'3 (0-0.2); BASOPHILS % (AUTO) 0.8 % (0-1); EOSINOPHILS # (AUTO) 0.4 X10'3 (0-0.9); EOSINOPHILS % (AUTO) 5.6 % (0-6); HEMATOCRIT 29.9 % (42.0-52.0); HEMOGLOBIN 10.1 g/dl (14.0-17.9); LYMPHOCYTES # (AUTO) 2.1 X10'3 (1.1-4.8); MEAN CORPUSCULAR HEMOGLOBIN 32.5 PG (27.0-31.0); MEAN CORPUSCULAR HGB CONC 33.7 % (33.0-36.5); MEAN CORPUSCULAR VOLUME 96.2 FL (78-98); MONOCYTES # (AUTO) 0.5 X10'3 (0-0.9); MONOCYTES % (AUTO) 7.1 % (2-12); NEUTROPHILS # (AUTO) 4.3 X10'3 (1.8-7.7); NEUTROPHILS % (AUTO) 58.5 % (42-75); PLATELET COUNT 316 X10'3 (140-440); RED BLOOD COUNT 3.11 X10'6 (4.70-6.10); RED CELL DISTRIBUTION WIDTH 17.8 % (11.5-14.5); WHITE BLOOD COUNT 7.4 X10'3 (4.5-11.0)
[2018-05-28 06:09] LABS: ALANINE AMINOTRANSFERASE 14 U/L (12-78); ALBUMIN 1.7 G/DL (3.4-5.0); ALBUMIN/GLOBULIN RATIO 0.5 (1.1-1.5); ALKALINE PHOSPHATASE 168 IU/L (46-116); ANION GAP 11 (8-16); ASPARTATE AMINO TRANSFERASE 21 U/L (10-37); BILIRUBIN,TOTAL 0.3 MG/DL (0.1-1.0); BLOOD UREA NITROGEN 57 MG/DL (7-18); BUN/CREATININE RATIO 6.5 (5.4-32.0); CALCIUM 8.8 MG/DL (8.5-10.1); CHLORIDE 92 MMOL/L (99-107); CREATININE 8.75 MG/DL (0.60-1.10); GLUCOSE 97 MG/DL (70-104); MAGNESIUM 1.8 MG/DL (1.5-2.4); PHOSPHORUS 4.8 MG/DL (2.3-4.5); SODIUM 127 MMOL/L (135-145); TOTAL CARBON DIOXIDE 23.9 MMOL/L (24-32); eGFR 6 ML/MIN
[2018-05-28 06:16] LABS: INR 3.2 INR; PARTIAL THROMBOPLASTIN TIME 57 SECONDS (22-32); PROTHROMBIN TIME 30.5 SECONDS (9.0-12.0)
[2018-05-28] MEDS: NUT.TX.GLUC.INTOLER,LAC-FR,SOY (GLUCERNA) 237 ML PO SCH ×3 (08:00→18:00)
[2018-05-28] MEDS: atorvastatin 10mg tablet PO SCH (08:13)
[2018-05-28] MEDS: polyethylene glycol 3350 17gm powd pack PO SCH (08:13)
[2018-05-28] MEDS: sennosides/docusate sodium tablet PO SCH (08:13)
[2018-05-28] MEDS: amiodarone 200mg tablet PO SCH (08:13)
[2018-05-28] MEDS: fludrocortisone acetate 0.1mg tablet PO SCH (08:13)
[2018-05-28] MEDS: sertraline 50mg tablet PO SCH (08:13)
[2018-05-28] MEDS: calcium acetate 667mg (PhosLO) capsule PO SCH ×3 (08:13→18:34)
[2018-05-28] MEDS: DOPamine 400mg/D5W 250ml 250 ML IV SCH (11:36)
[2018-05-28] MEDS: NUT.TX.IMP.RENAL FXN,LAC-REDUC (Nepro) 237 ML VANILLA PO SCH ×2 (14:34→18:00)
[2018-05-28] MEDS: insulin glargine (Lantus) pen - multi-dose SQ SCH (21:00)
[2018-05-28] MEDS ORDERED: HYDROcodone/acetaminophen 5mg/325mg tablet PO ONE (23:30)
[2018-05-29] VITALS (24 sets, daily range): BP systolic 74–127; BP diastolic 42–67
[2018-05-29] MEDS: DOPamine 400mg/D5W 250ml 250 ML IV SCH ×2 (00:36→13:36)
[2018-05-29] MEDS: midodrine 5mg tablet PO SCH ×4 (01:17→23:49)
[2018-05-29 05:29] LABS: ALANINE AMINOTRANSFERASE 13 U/L (12-78); ALBUMIN 1.7 G/DL (3.4-5.0); ALBUMIN/GLOBULIN RATIO 0.5 (1.1-1.5); ALKALINE PHOSPHATASE 198 IU/L (46-116); ANION GAP 12 (8-16); ASPARTATE AMINO TRANSFERASE 20 U/L (10-37); BILIRUBIN,TOTAL 0.3 MG/DL (0.1-1.0); BLOOD UREA NITROGEN 59 MG/DL (7-18); BUN/CREATININE RATIO 7.1 (5.4-32.0); CALCIUM 8.6 MG/DL (8.5-10.1); CHLORIDE 90 MMOL/L (99-107); CREATININE 8.34 MG/DL (0.60-1.10); GLUCOSE 81 MG/DL (70-104); MAGNESIUM 1.9 MG/DL (1.5-2.4); PHOSPHORUS 4.9 MG/DL (2.3-4.5); POTASSIUM 4.4 MMOL/L (3.5-5.1); SODIUM 126 MMOL/L (135-145); TOTAL CARBON DIOXIDE 24.4 MMOL/L (24-32); eGFR 6 ML/MIN
[2018-05-29 05:48] LABS: INR 3.2 INR; PARTIAL THROMBOPLASTIN TIME 53 SECONDS (22-32); PROTHROMBIN TIME 30.5 SECONDS (9.0-12.0)
[2018-05-29] MEDS: HYDROcodone/acetaminophen 5mg/325mg tablet PO PRN ×4 (06:21→22:33)
[2018-05-29 06:36] LABS: BASOPHILS # (AUTO) 0.1 X10'3 (0-0.2); BASOPHILS % (AUTO) 1.2 % (0-1); EOSINOPHILS # (AUTO) 0.4 X10'3 (0-0.9); EOSINOPHILS % (AUTO) 5.9 % (0-6); HEMATOCRIT 30.6 % (42.0-52.0); HEMOGLOBIN 10.4 g/dl (14.0-17.9); LYMPHOCYTES # (AUTO) 1.7 X10'3 (1.1-4.8); MEAN CORPUSCULAR HEMOGLOBIN 32.9 PG (27.0-31.0); MEAN CORPUSCULAR HGB CONC 34.1 % (33.0-36.5); MEAN CORPUSCULAR VOLUME 96.4 FL (78-98); MEAN PLATELET VOLUME 6.1 FL (7.4-10.4); MONOCYTES # (AUTO) 0.3 X10'3 (0-0.9); MONOCYTES % (AUTO) 5.5 % (2-12); NEUTROPHILS # (AUTO) 3.7 X10'3 (1.8-7.7); NEUTROPHILS % (AUTO) 59.4 % (42-75); PLATELET COUNT 343 X10'3 (140-440); RED BLOOD COUNT 3.17 X10'6 (4.70-6.10); RED CELL DISTRIBUTION WIDTH 17.9 % (11.5-14.5); WHITE BLOOD COUNT 6.2 X10'3 (4.5-11.0)
[2018-05-29] MEDS: NUT.TX.GLUC.INTOLER,LAC-FR,SOY (GLUCERNA) 237 ML PO SCH ×3 (08:00→18:00)
[2018-05-29] MEDS: sennosides/docusate sodium tablet PO SCH (08:00)
[2018-05-29] MEDS: polyethylene glycol 3350 17gm powd pack PO SCH (08:00)
[2018-05-29] MEDS: atorvastatin 10mg tablet PO SCH (08:25)
[2018-05-29] MEDS: gabapentin 100mg capsule PO SCH ×3 (08:25→23:47)
[2018-05-29] MEDS: amiodarone 200mg tablet PO SCH (08:26)
[2018-05-29] MEDS: sertraline 50mg tablet PO SCH (08:26)
[2018-05-29] MEDS: calcium acetate 667mg (PhosLO) capsule PO SCH ×3 (08:26→19:23)
[2018-05-29] MEDS: NUT.TX.IMP.RENAL FXN,LAC-REDUC (Nepro) 237 ML VANILLA PO SCH ×3 (08:28→19:23)
[2018-05-29] MEDS: NORepinephrine 8mg/ 250ml NS 250 ML IV SCH (09:55)
[2018-05-29] MEDS: fludrocortisone acetate 0.1mg tablet PO SCH (11:35)
[2018-05-29] MEDS: insulin glargine (Lantus) pen - multi-dose SQ SCH (21:00)
[2018-05-29] MEDS ORDERED: NORepinephrine 8mg/ 250ml NS 250 ML IV SCH (22:20)
[2018-05-30] VITALS (24 sets, daily range): BP systolic 85–134; BP diastolic 40–70
[2018-05-30] MEDS: DOPamine 400mg/D5W 250ml 250 ML IV SCH (02:36)
[2018-05-30] MEDS: HYDROcodone/acetaminophen 5mg/325mg tablet PO PRN ×2 (02:41→07:39)
[2018-05-30 02:44] LABS: BASOPHILS # (AUTO) 0.1 X10'3 (0-0.2); BASOPHILS % (AUTO) 1.1 % (0-1); EOSINOPHILS # (AUTO) 0.4 X10'3 (0-0.9); EOSINOPHILS % (AUTO) 5.5 % (0-6); HEMATOCRIT 31.2 % (42.0-52.0); HEMOGLOBIN 10.5 g/dl (14.0-17.9); LYMPHOCYTES # (AUTO) 2.1 X10'3 (1.1-4.8); LYMPHOCYTES % (AUTO) 27.4 % (21-51); MEAN CORPUSCULAR HEMOGLOBIN 32.5 PG (27.0-31.0); MEAN CORPUSCULAR HGB CONC 33.6 % (33.0-36.5); MEAN CORPUSCULAR VOLUME 96.8 FL (78-98); MEAN PLATELET VOLUME 5.9 FL (7.4-10.4); MONOCYTES # (AUTO) 0.4 X10'3 (0-0.9); MONOCYTES % (AUTO) 5.8 % (2-12); NEUTROPHILS # (AUTO) 4.6 X10'3 (1.8-7.7); NEUTROPHILS % (AUTO) 60.2 % (42-75); PLATELET COUNT 337 X10'3 (140-440); RED BLOOD COUNT 3.22 X10'6 (4.70-6.10); RED CELL DISTRIBUTION WIDTH 18.1 % (11.5-14.5); WHITE BLOOD COUNT 7.7 X10'3 (4.5-11.0)
[2018-05-30 03:02] LABS: INR 2.2 INR; PARTIAL THROMBOPLASTIN TIME 51 SECONDS (22-32); PROTHROMBIN TIME 21.1 SECONDS (9.0-12.0)
[2018-05-30 03:03] LABS: ALANINE AMINOTRANSFERASE 14 U/L (12-78); ALBUMIN 1.8 G/DL (3.4-5.0); ALBUMIN/GLOBULIN RATIO 0.5 (1.1-1.5); ALKALINE PHOSPHATASE 185 IU/L (46-116); ANION GAP 11 (8-16); ASPARTATE AMINO TRANSFERASE 18 U/L (10-37); BILIRUBIN,TOTAL 0.3 MG/DL (0.1-1.0); BLOOD UREA NITROGEN 51 MG/DL (7-18); BUN/CREATININE RATIO 6.5 (5.4-32.0); CALCIUM 8.6 MG/DL (8.5-10.1); CHLORIDE 88 MMOL/L (99-107); CREATININE 7.79 MG/DL (0.60-1.10); GLUCOSE 94 MG/DL (70-104); MAGNESIUM 1.8 MG/DL (1.5-2.4); PHOSPHORUS 4.4 MG/DL (2.3-4.5); POTASSIUM 4.2 MMOL/L (3.5-5.1); SODIUM 125 MMOL/L (135-145); TOTAL CARBON DIOXIDE 26.4 MMOL/L (24-32); TOTAL PROTEIN 5.2 G/DL (6.4-8.2); eGFR 7 ML/MIN
[2018-05-30] MEDS: NUT.TX.IMP.RENAL FXN,LAC-REDUC (Nepro) 237 ML VANILLA PO SCH ×3 (08:00→18:00)
[2018-05-30] MEDS: polyethylene glycol 3350 17gm powd pack PO SCH (08:00)
[2018-05-30] MEDS: NUT.TX.GLUC.INTOLER,LAC-FR,SOY (GLUCERNA) 237 ML PO SCH ×3 (08:00→18:00)
[2018-05-30] MEDS: gabapentin 100mg capsule PO SCH ×2 (08:43→16:21)
[2018-05-30] MEDS: amiodarone 200mg tablet PO SCH (08:44)
[2018-05-30] MEDS: sennosides/docusate sodium tablet PO SCH (08:46)
[2018-05-30] MEDS: predniSONE 20 mg tablet PO SCH (08:46)
[2018-05-30] MEDS: sertraline 50mg tablet PO SCH (08:46)
[2018-05-30] MEDS: calcium acetate 667mg (PhosLO) capsule PO SCH ×3 (08:46→18:45)
[2018-05-30] MEDS: atorvastatin 10mg tablet PO SCH (08:47)
[2018-05-30] MEDS: fludrocortisone acetate 0.1mg tablet PO SCH (08:47)
[2018-05-30] MEDS: midodrine 5mg tablet PO SCH ×2 (08:49→16:18)
[2018-05-30] MEDS: acetaminophen 325mg tablet PO PRN (08:51)
[2018-05-30] MEDS ORDERED: fludrocortisone acetate 0.1mg tablet PO ONE (14:50)
[2018-05-30] MEDS: insulin glargine (Lantus) pen - multi-dose SQ SCH (20:19)
[2018-05-30] MEDS ORDERED: warfarin 3mg tablet PO ONE (21:00)
[2018-05-31] VITALS (15 sets, daily range): BP systolic 93–131; BP diastolic 58–91
[2018-05-31] MEDS: midodrine 5mg tablet PO SCH ×4 (00:51→23:56)
[2018-05-31] MEDS: gabapentin 100mg capsule PO SCH ×4 (00:53→23:56)
[2018-05-31] MEDS: HYDROcodone/acetaminophen 5mg/325mg tablet PO PRN (03:06)
[2018-05-31 05:20] LABS: BASOPHILS % (AUTO) 0.3 % (0-1); EOSINOPHILS # (AUTO) 0.1 X10'3 (0-0.9); EOSINOPHILS % (AUTO) 1.4 % (0-6); HEMOGLOBIN 9.8 g/dl (14.0-17.9); LYMPHOCYTES # (AUTO) 0.9 X10'3 (1.1-4.8); LYMPHOCYTES % (AUTO) 11.9 % (21-51); MEAN CORPUSCULAR HEMOGLOBIN 32.6 PG (27.0-31.0); MEAN CORPUSCULAR HGB CONC 33.9 % (33.0-36.5); MEAN CORPUSCULAR VOLUME 96.3 FL (78-98); MEAN PLATELET VOLUME 6.2 FL (7.4-10.4); MONOCYTES # (AUTO) 0.1 X10'3 (0-0.9); MONOCYTES % (AUTO) 1.8 % (2-12); NEUTROPHILS # (AUTO) 6.2 X10'3 (1.8-7.7); NEUTROPHILS % (AUTO) 84.6 % (42-75); PLATELET COUNT 377 X10'3 (140-440); RED BLOOD COUNT 3.01 X10'6 (4.70-6.10); RED CELL DISTRIBUTION WIDTH 17.3 % (11.5-14.5); WHITE BLOOD COUNT 7.4 X10'3 (4.5-11.0)
[2018-05-31 05:27] LABS: INR 1.7 INR; PARTIAL THROMBOPLASTIN TIME 46 SECONDS (22-32)
[2018-05-31 05:32] LABS: ALANINE AMINOTRANSFERASE 12 U/L (12-78); ALBUMIN 1.8 G/DL (3.4-5.0); ALBUMIN/GLOBULIN RATIO 0.5 (1.1-1.5); ALKALINE PHOSPHATASE 160 IU/L (46-116); ANION GAP 12 (8-16); ASPARTATE AMINO TRANSFERASE 15 U/L (10-37); BILIRUBIN,TOTAL 0.3 MG/DL (0.1-1.0); BLOOD UREA NITROGEN 51 MG/DL (7-18); BUN/CREATININE RATIO 6.4 (5.4-32.0); CALCIUM 8.5 MG/DL (8.5-10.1); CHLORIDE 86 MMOL/L (99-107); CREATININE 7.91 MG/DL (0.60-1.10); GLUCOSE 143 MG/DL (70-104); MAGNESIUM 1.9 MG/DL (1.5-2.4); PHOSPHORUS 4.1 MG/DL (2.3-4.5); POTASSIUM 4.4 MMOL/L (3.5-5.1); SODIUM 123 MMOL/L (135-145); TOTAL CARBON DIOXIDE 25.3 MMOL/L (24-32); TOTAL PROTEIN 5.2 G/DL (6.4-8.2); eGFR 7 ML/MIN
[2018-05-31] MEDS: sennosides/docusate sodium tablet PO SCH (07:58)
[2018-05-31] MEDS: amiodarone 200mg tablet PO SCH (07:58)
[2018-05-31] MEDS: atorvastatin 10mg tablet PO SCH (07:58)
[2018-05-31] MEDS: calcium acetate 667mg (PhosLO) capsule PO SCH ×3 (07:59→21:32)
[2018-05-31] MEDS: predniSONE 20 mg tablet PO SCH (07:59)
[2018-05-31] MEDS: NUT.TX.GLUC.INTOLER,LAC-FR,SOY (GLUCERNA) 237 ML PO SCH ×3 (08:00→18:00)
[2018-05-31] MEDS: sertraline 50mg tablet PO SCH (08:02)
[2018-05-31] MEDS: polyethylene glycol 3350 17gm powd pack PO SCH (08:02)
[2018-05-31] MEDS: fludrocortisone acetate 0.1mg tablet PO SCH (08:02)
[2018-05-31] MEDS: NUT.TX.IMP.RENAL FXN,LAC-REDUC (Nepro) 237 ML VANILLA PO SCH ×3 (08:02→18:00)
[2018-05-31] MEDS ORDERED: warfarin 4mg tablet PO ONE (21:00)
[2018-05-31] MEDS: insulin glargine (Lantus) pen - multi-dose SQ SCH (21:00)
[2018-06-01] VITALS (9 sets, daily range): BP systolic 108–139; BP diastolic 21–112
[2018-06-01] MEDS: acetaminophen 325mg tablet PO PRN (03:50)
[2018-06-01 04:36] LABS: BASOPHILS # (AUTO) 0.1 X10'3 (0-0.2); BASOPHILS % (AUTO) 0.8 % (0-1); EOSINOPHILS # (AUTO) 0.1 X10'3 (0-0.9); EOSINOPHILS % (AUTO) 1.3 % (0-6); HEMATOCRIT 29.3 % (42.0-52.0); HEMOGLOBIN 10.1 g/dl (14.0-17.9); LYMPHOCYTES # (AUTO) 1.1 X10'3 (1.1-4.8); MEAN CORPUSCULAR HEMOGLOBIN 32.8 PG (27.0-31.0); MEAN CORPUSCULAR HGB CONC 34.3 % (33.0-36.5); MEAN CORPUSCULAR VOLUME 95.6 FL (78-98); MEAN PLATELET VOLUME 5.9 FL (7.4-10.4); MONOCYTES # (AUTO) 0.3 X10'3 (0-0.9); NEUTROPHILS # (AUTO) 7.2 X10'3 (1.8-7.7); NEUTROPHILS % (AUTO) 81.9 % (42-75); PLATELET COUNT 482 X10'3 (140-440); RED BLOOD COUNT 3.06 X10'6 (4.70-6.10); RED CELL DISTRIBUTION WIDTH 17.5 % (11.5-14.5); WHITE BLOOD COUNT 8.8 X10'3 (4.5-11.0)
[2018-06-01 04:38] LABS: ALANINE AMINOTRANSFERASE 13 U/L (12-78); ALBUMIN/GLOBULIN RATIO 0.6 (1.1-1.5); ALKALINE PHOSPHATASE 161 IU/L (46-116); ANION GAP 10 (8-16); ASPARTATE AMINO TRANSFERASE 15 U/L (10-37); BILIRUBIN,TOTAL 0.3 MG/DL (0.1-1.0); BLOOD UREA NITROGEN 55 MG/DL (7-18); CALCIUM 8.3 MG/DL (8.5-10.1); CHLORIDE 87 MMOL/L (99-107); CREATININE 7.86 MG/DL (0.60-1.10); GLUCOSE 124 MG/DL (70-104); PHOSPHORUS 4.2 MG/DL (2.3-4.5); POTASSIUM 4.6 MMOL/L (3.5-5.1); SODIUM 123 MMOL/L (135-145); TOTAL CARBON DIOXIDE 25.6 MMOL/L (24-32); TOTAL PROTEIN 5.6 G/DL (6.4-8.2); eGFR 7 ML/MIN
[2018-06-01 04:40] LABS: INR 1.6 INR; PARTIAL THROMBOPLASTIN TIME 39 SECONDS (22-32); PROTHROMBIN TIME 15.4 SECONDS (9.0-12.0)
[2018-06-01] MEDS: HYDROcodone/acetaminophen 5mg/325mg tablet PO PRN (07:16)
[2018-06-01] MEDS: NUT.TX.GLUC.INTOLER,LAC-FR,SOY (GLUCERNA) 237 ML PO SCH ×3 (08:00→18:00)
[2018-06-01] MEDS: polyethylene glycol 3350 17gm powd pack PO SCH (08:45)
[2018-06-01] MEDS: midodrine 5mg tablet PO SCH ×4 (08:46→23:53)
[2018-06-01] MEDS: atorvastatin 10mg tablet PO SCH (08:51)
[2018-06-01] MEDS: amiodarone 200mg tablet PO SCH (08:51)
[2018-06-01] MEDS: calcium acetate 667mg (PhosLO) capsule PO SCH ×3 (08:51→18:45)
[2018-06-01] MEDS: gabapentin 100mg capsule PO SCH ×3 (08:51→23:53)
[2018-06-01] MEDS: sertraline 50mg tablet PO SCH (08:51)
[2018-06-01] MEDS: predniSONE 20 mg tablet PO SCH (08:51)
[2018-06-01] MEDS: sennosides/docusate sodium tablet PO SCH (08:51)
[2018-06-01] MEDS: fludrocortisone acetate 0.1mg tablet PO SCH (08:52)
[2018-06-01] MEDS: NUT.TX.IMP.RENAL FXN,LAC-REDUC (Nepro) 237 ML VANILLA PO SCH ×3 (08:54→18:45)
[2018-06-01] MEDS ORDERED: fludrocortisone acetate 0.1mg tablet PO ONE (15:55)
[2018-06-01] MEDS ORDERED: warfarin 4mg tablet PO ONE (21:00)
[2018-06-01] MEDS: insulin glargine (Lantus) pen - multi-dose SQ SCH (21:00)
[2018-06-02 02:00] VITALS: BP 147/122
[2018-06-02 06:00] VITALS: BP 131/58
[2018-06-02 06:55] LABS: BASOPHILS % (AUTO) 0.4 % (0-1); EOSINOPHILS # (AUTO) 0.1 X10'3 (0-0.9); EOSINOPHILS % (AUTO) 0.9 % (0-6); HEMATOCRIT 29.9 % (42.0-52.0); LYMPHOCYTES # (AUTO) 1.5 X10'3 (1.1-4.8); LYMPHOCYTES % (AUTO) 18.2 % (21-51); MEAN CORPUSCULAR HEMOGLOBIN 32.6 PG (27.0-31.0); MEAN CORPUSCULAR HGB CONC 33.5 % (33.0-36.5); MEAN CORPUSCULAR VOLUME 97.3 FL (78-98); MEAN PLATELET VOLUME 5.9 FL (7.4-10.4); MONOCYTES # (AUTO) 0.5 X10'3 (0-0.9); MONOCYTES % (AUTO) 5.9 % (2-12); NEUTROPHILS # (AUTO) 6.3 X10'3 (1.8-7.7); NEUTROPHILS % (AUTO) 74.6 % (42-75); PLATELET COUNT 443 X10'3 (140-440); RED BLOOD COUNT 3.07 X10'6 (4.70-6.10); RED CELL DISTRIBUTION WIDTH 17.6 % (11.5-14.5); WHITE BLOOD COUNT 8.5 X10'3 (4.5-11.0)
[2018-06-02 07:12] LABS: ALANINE AMINOTRANSFERASE 16 U/L (12-78); ALBUMIN 2.1 G/DL (3.4-5.0); ALBUMIN/GLOBULIN RATIO 0.6 (1.1-1.5); ALKALINE PHOSPHATASE 157 IU/L (46-116); ANION GAP 8 (8-16); ASPARTATE AMINO TRANSFERASE 15 U/L (10-37); BILIRUBIN,TOTAL 0.3 MG/DL (0.1-1.0); BLOOD UREA NITROGEN 57 MG/DL (7-18); BUN/CREATININE RATIO 7.3 (5.4-32.0); CALCIUM 8.2 MG/DL (8.5-10.1); CHLORIDE 88 MMOL/L (99-107); CREATININE 7.81 MG/DL (0.60-1.10); GLUCOSE 118 MG/DL (70-104); MAGNESIUM 1.9 MG/DL (1.5-2.4); PHOSPHORUS 3.8 MG/DL (2.3-4.5); POTASSIUM 4.2 MMOL/L (3.5-5.1); SODIUM 125 MMOL/L (135-145); TOTAL CARBON DIOXIDE 28.8 MMOL/L (24-32); TOTAL PROTEIN 5.6 G/DL (6.4-8.2); eGFR 7 ML/MIN
[2018-06-02 07:14] LABS: INR 1.2 INR; PARTIAL THROMBOPLASTIN TIME 34 SECONDS (22-32); PROTHROMBIN TIME 12.5 SECONDS (9.0-12.0)
[2018-06-02] MEDS: midodrine 5mg tablet PO SCH ×3 (08:04→23:25)
[2018-06-02] MEDS: amiodarone 200mg tablet PO SCH (08:05)
[2018-06-02] MEDS: sertraline 50mg tablet PO SCH (08:05)
[2018-06-02] MEDS: sennosides/docusate sodium tablet PO SCH (08:05)
[2018-06-02] MEDS: predniSONE 20 mg tablet PO SCH (08:06)
[2018-06-02] MEDS: atorvastatin 10mg tablet PO SCH (08:06)
[2018-06-02] MEDS: calcium acetate 667mg (PhosLO) capsule PO SCH ×3 (08:06→17:29)
[2018-06-02] MEDS: gabapentin 100mg capsule PO SCH ×3 (08:06→23:26)
[2018-06-02] MEDS: polyethylene glycol 3350 17gm powd pack PO SCH (08:07)
[2018-06-02] MEDS: NUT.TX.GLUC.INTOLER,LAC-FR,SOY (GLUCERNA) 237 ML PO SCH ×3 (08:07→18:02)
[2018-06-02] MEDS: NUT.TX.IMP.RENAL FXN,LAC-REDUC (Nepro) 237 ML VANILLA PO SCH ×3 (08:07→17:29)
[2018-06-02] MEDS: fludrocortisone acetate 0.1mg tablet PO SCH (10:04)
[2018-06-02 11:00] VITALS: BP 121/96
[2018-06-02] MEDS ORDERED: midodrine 5mg tablet PO ONE (11:05)
[2018-06-02 15:00] VITALS: BP 150/80
[2018-06-02 18:00] VITALS: BP 146/115
[2018-06-02] MEDS: insulin glargine (Lantus) pen - multi-dose SQ SCH (20:49)
[2018-06-02] MEDS ORDERED: warfarin 5mg tablet PO ONE (21:00)
[2018-06-02 22:00] VITALS: BP 98/79
[2018-06-03 02:00] VITALS: BP 90/60
[2018-06-03 06:58] VITALS: BP 114/88
[2018-06-03] MEDS: polyethylene glycol 3350 17gm powd pack PO SCH (07:28)
[2018-06-03] MEDS: sertraline 50mg tablet PO SCH (07:28)
[2018-06-03] MEDS: midodrine 5mg tablet PO SCH ×2 (07:28→15:46)
[2018-06-03] MEDS: atorvastatin 10mg tablet PO SCH (07:28)
[2018-06-03] MEDS: sennosides/docusate sodium tablet PO SCH (07:28)
[2018-06-03] MEDS: gabapentin 100mg capsule PO SCH ×2 (07:28→15:46)
[2018-06-03] MEDS: amiodarone 200mg tablet PO SCH (07:42)
[2018-06-03] MEDS: calcium acetate 667mg (PhosLO) capsule PO SCH ×2 (07:43→13:12)
[2018-06-03] MEDS: fludrocortisone acetate 0.1mg tablet PO SCH (07:43)
[2018-06-03] MEDS: NUT.TX.GLUC.INTOLER,LAC-FR,SOY (GLUCERNA) 237 ML PO SCH ×2 (07:43→13:08)
[2018-06-03] MEDS: predniSONE 20 mg tablet PO SCH (07:43)
[2018-06-03] MEDS: NUT.TX.IMP.RENAL FXN,LAC-REDUC (Nepro) 237 ML VANILLA PO SCH ×2 (07:43→13:08)
[2018-06-03] MEDS: insulin Lispro (HumaLOG) vial - multi-dose SQ SCH ×2 (08:06→13:16)
[2018-06-03 11:00] VITALS: BP 122/74
[2018-06-03] MEDS: HYDROcodone/acetaminophen 5mg/325mg tablet PO PRN (11:41)
[2018-06-03] MEDS ORDERED: MIDO5TAB PO (13:16)
[2018-06-03] MEDS ORDERED: PRED20TA PO (13:16)
[2018-06-03] MEDS ORDERED: FLO0.1T PO (13:16)
[2018-06-03 13:50] LABS: INR 1.3 INR; PARTIAL THROMBOPLASTIN TIME 32 SECONDS (22-32); PROTHROMBIN TIME 12.7 SECONDS (9.0-12.0)
[2018-06-03 13:51] LABS: ALANINE AMINOTRANSFERASE 21 U/L (12-78); ALBUMIN 2.3 G/DL (3.4-5.0); ALBUMIN/GLOBULIN RATIO 0.6 (1.1-1.5); ALKALINE PHOSPHATASE 186 IU/L (46-116); ANION GAP 10 (8-16); ASPARTATE AMINO TRANSFERASE 18 U/L (10-37); BILIRUBIN,TOTAL 0.3 MG/DL (0.1-1.0); BLOOD UREA NITROGEN 60 MG/DL (7-18); BUN/CREATININE RATIO 7.8 (5.4-32.0); CHLORIDE 85 MMOL/L (99-107); CREATININE 7.67 MG/DL (0.60-1.10); GLUCOSE 176 MG/DL (70-104); MAGNESIUM 1.8 MG/DL (1.5-2.4); PHOSPHORUS 3.6 MG/DL (2.3-4.5); POTASSIUM 4.6 MMOL/L (3.5-5.1); SODIUM 121 MMOL/L (135-145); TOTAL CARBON DIOXIDE 26.5 MMOL/L (24-32); eGFR 7 ML/MIN
[2018-06-03 13:59] LABS: BASOPHILS # (AUTO) 0.1 X10'3 (0-0.2); BASOPHILS % (AUTO) 0.6 % (0-1); EOSINOPHILS # (AUTO) 0.1 X10'3 (0-0.9); EOSINOPHILS % (AUTO) 1.1 % (0-6); HEMATOCRIT 32.5 % (42.0-52.0); HEMOGLOBIN 10.8 g/dl (14.0-17.9); LYMPHOCYTES # (AUTO) 0.6 X10'3 (1.1-4.8); LYMPHOCYTES % (AUTO) 5.9 % (21-51); MEAN CORPUSCULAR HEMOGLOBIN 32.2 PG (27.0-31.0); MEAN CORPUSCULAR HGB CONC 33.1 % (33.0-36.5); MEAN PLATELET VOLUME 5.7 FL (7.4-10.4); MONOCYTES # (AUTO) 0.2 X10'3 (0-0.9); MONOCYTES % (AUTO) 1.5 % (2-12); NEUTROPHILS # (AUTO) 9.1 X10'3 (1.8-7.7); NEUTROPHILS % (AUTO) 90.9 % (42-75); PLATELET COUNT 490 X10'3 (140-440); RED BLOOD COUNT 3.35 X10'6 (4.70-6.10)
[2018-06-03 15:00] VITALS: BP 110/72
[2018-06-03] MEDS ORDERED: warfarin 5mg tablet PO ONE (21:00)
== END 2018-06-03 16:25 | disposition home or self-care (01) | DRG 312 ==
LOC: ER 14:01 → ED HOLD 17:27 → PCU 3S 19:13 → ICU 2S 05-20 06:53 → CICU 2S 05-23 16:30 → PCU 3S 05-29 19:35 → CICU 2S 05-29 19:37 → PCU 3S 05-31 18:00
PROVIDERS: ADMIT Internal Medicine
PROC: 3E1M39Z Irrigation of Peritoneal Cavity using Dialysate, Percutaneous Approach (ICD-10-PCS; 2018-05-16)
PROC: 3E1M39Z Irrigation of Peritoneal Cavity using Dialysate, Percutaneous Approach (ICD-10-PCS; 2018-05-17)
PROC: 3E1M39Z Irrigation of Peritoneal Cavity using Dialysate, Percutaneous Approach (ICD-10-PCS; 2018-05-18)
PROC: 5A09357 Assistance with Respiratory Ventilation, Less than 24 Consecutive Hours, Continuous Positive Airway Pressure (ICD-10-PCS; principal; 2018-05-19)
PROC: 3E1M39Z Irrigation of Peritoneal Cavity using Dialysate, Percutaneous Approach (ICD-10-PCS; 2018-05-19)
PROC: 02HV33Z Insertion of Infusion Device into Superior Vena Cava, Percutaneous Approach (ICD-10-PCS; 2018-05-20)
PROC: B548ZZA Ultrasonography of Superior Vena Cava, Guidance (ICD-10-PCS; 2018-05-20)
PROC: 3E1M39Z Irrigation of Peritoneal Cavity using Dialysate, Percutaneous Approach (ICD-10-PCS; 2018-05-20)
PROC: 3E1M39Z Irrigation of Peritoneal Cavity using Dialysate, Percutaneous Approach (ICD-10-PCS; 2018-05-21)
PROC: 3E1M39Z Irrigation of Peritoneal Cavity using Dialysate, Percutaneous Approach (ICD-10-PCS; 2018-05-22)
PROC: 3E1M39Z Irrigation of Peritoneal Cavity using Dialysate, Percutaneous Approach (ICD-10-PCS; 2018-05-23)
PROC: 3E1M39Z Irrigation of Peritoneal Cavity using Dialysate, Percutaneous Approach (ICD-10-PCS; 2018-05-24)
PROC: 4B02XSZ Measurement of Cardiac Pacemaker, External Approach (ICD-10-PCS; 2018-05-24)
PROC: 3E1M39Z Irrigation of Peritoneal Cavity using Dialysate, Percutaneous Approach (ICD-10-PCS; 2018-05-25)
PROC: 3E1M39Z Irrigation of Peritoneal Cavity using Dialysate, Percutaneous Approach (ICD-10-PCS; 2018-05-26)
PROC: 3E1M39Z Irrigation of Peritoneal Cavity using Dialysate, Percutaneous Approach (ICD-10-PCS; 2018-05-27)
PROC: 3E1M39Z Irrigation of Peritoneal Cavity using Dialysate, Percutaneous Approach (ICD-10-PCS; 2018-05-28)
PROC: 3E1M39Z Irrigation of Peritoneal Cavity using Dialysate, Percutaneous Approach (ICD-10-PCS; 2018-05-29)
PROC: 3E1M39Z Irrigation of Peritoneal Cavity using Dialysate, Percutaneous Approach (ICD-10-PCS; 2018-05-30)
PROC: 3E1M39Z Irrigation of Peritoneal Cavity using Dialysate, Percutaneous Approach (ICD-10-PCS; 2018-05-31)
PROC: 3E1M39Z Irrigation of Peritoneal Cavity using Dialysate, Percutaneous Approach (ICD-10-PCS; 2018-06-01)
PROC: 3E1M39Z Irrigation of Peritoneal Cavity using Dialysate, Percutaneous Approach (ICD-10-PCS; 2018-06-02)
PROC: 3E1M39Z Irrigation of Peritoneal Cavity using Dialysate, Percutaneous Approach (ICD-10-PCS; 2018-06-03)
DX: I95.1 Orthostatic hypotension (principal); N18.6 End stage renal disease; I13.2 Hypertensive heart and chronic kidney disease with heart failure and with stage 5 chronic kidney disease, or end stage renal disease; D68.9 Coagulation defect, unspecified; I50.9 Heart failure, unspecified; E11.22 Type 2 diabetes mellitus with diabetic chronic kidney disease; E78.00 Pure hypercholesterolemia, unspecified; E78.5 Hyperlipidemia, unspecified; E86.0 Dehydration; R09.02 Hypoxemia; G25.3 Myoclonus; M25.561 Pain in right knee; W18.39XA Other fall on same level, initial encounter; R53.1 Weakness; M25.562 Pain in left knee; R91.8 Other nonspecific abnormal finding of lung field; M79.672 Pain in left foot; M19.079 Primary osteoarthritis, unspecified ankle and foot; M17.0 Bilateral primary osteoarthritis of knee; M79.675 Pain in left toe(s); H91.90 Unspecified hearing loss, unspecified ear; K59.00 Constipation, unspecified; M25.572 Pain in left ankle and joints of left foot; I48.2 Chronic atrial fibrillation; M10.9 Gout, unspecified; R13.10 Dysphagia, unspecified; Z74.01 Bed confinement status; Z98.84 Bariatric surgery status; Z99.2 Dependence on renal dialysis; Z95.0 Presence of cardiac pacemaker; Z79.899 Other long term (current) drug therapy; Z79.01 Long term (current) use of anticoagulants; Y93.89 Activity, other specified; Y92.89 Other specified places as the place of occurrence of the external cause; Y99.8 Other external cause status
CPT/HCPCS: 36415; 36569; 36600; 70450; 71045; 73620; 76937; 80048; 80053; 80076; 82533; 82803; 82810; 82948; 83605; 83735; 83880; 84100; 84145; 84439; 84443; 84484; 85018; 85025; 85610; 85730; 87040; 87070; 87075; 89051; 90935; 92616; 93005; 93306; 94660; 94760; 97110; 97116; 97162; 97530; 99285; G0378; J1265; J1815; J1956; J2405; J7030; J7512; P9045; P9047